=== PATIENT | male | born 1960 | race Caucasian/White ===

== ENCOUNTER 2018-08-18 18:19 | Emergency (ER) | payer MEDICARE ==
[~2018-08-18] VITALS: Ht 175.3 cm; Wt 136.1 kg
[2018-08-18 18:53] VITALS: BP 150/87
--- NOTE | 2018-08-18 19:04 | PHYS DOC ---
Adult General Chief Complaint Chief Complaint: LACERATION/AVULSION HPI HPI Patient is a 58 year old male who presents to the emergency department with complaints of a laceration to his right index finger. Patient states he was washing a knife that he had used to cut ham when he accidentally cut his finger. He denies any numbness, tingling, or decreased range of motion of the finger. He states he is unsure when his last tetanus immunization was. Review of Systems Review of Systems Constitutional: Denies fever or chills [] Musculoskeletal: Denies joint pain [] Integument: Denies rash, see HPI Neurologic: Denies headache, focal weakness or sensory changes [] All other systems were reviewed and found to be within normal limits, except as documented in this note. Current Medications Current Medications Current Medications Medications (Trade) Dose Ordered Sig/Emeterio Start Time Stop Time Status Last Admin Dose Admin Diphtheria/ Tetanus/Acell Pertussis (Boostrix) 0.5 ml ONCE ONCE 08/18/18 19:30 08/18/18 19:31 DC 08/18/18 19:40 0.5 ML Lidocaine HCl (Xylocaine-Mpf 1% 2ml Vial) 6 ml 1X ONCE 08/18/18 19:30 08/18/18 19:31 DC 08/18/18 19:37 6 ML Neomycin/ Polymyxin/ Bacitracin (Triple Antibiotic Ointment) 1 pkt 1X ONCE 08/18/18 19:30 08/18/18 19:31 DC 08/18/18 19:38 1 PKT Allergies Allergies Allergies Coded Allergies Type Severity Reaction Last Updated Verified No Known Drug Allergies 08/18/18 No Physical Exam Physical Exam Constitutional: Well developed, well nourished, no acute distress, non-toxic appearance, obese. [] HENT: Normocephalic, atraumatic, bilateral external ears normal, nose normal. [] Eyes: PERRLA, conjunctiva normal, no discharge. [] Skin: Warm, dry, no erythema, no rash, 2 cm laceration to palmar surface of right index finger between DIP and PIP, approximately 2 cm long, bleeding controlled by pressure held by patient. [] Extremities: No cyanosis, no clubbing, ROM intact, no edema. [] Neurologic: Alert and oriented X 3, normal motor function, normal sensory function, no focal deficits noted. [] Psychologic: Affect normal, judgement normal, mood normal. [] Current Patient Data Vital Signs Vital Signs Date Time Temp Pulse Resp B/P (MAP) Pulse Ox O2 Delivery O2 Flow Rate FiO2 08/18/18 18:53 98.4 75 20 150/87 (108) 97 Room Air 98.4 EKG EKG [] Radiology/Procedures Radiology/Procedures Laceration Repair by me: Anesthesia: 1% lidocaine locally Location: palmar aspect of right index finger between DIP and PIP Tendon/Joint/Nerves: No injury Foreign body: None detected after copious irrigation and exploration Technique: 5 Simple Interrupted Sutures with 4.0 Ethilon Complexity: No subcutaneous sutures/mucosal repair/edge excision Post Closure Length: 2 cm Patient's bleeding was easily controlled in the department and there is no indication of anemia. No evidence of compartment syndrome, neurologic injury, vascular injury, open joint, tendon laceration, or foreign body. Patient is appropriate for outpatient follow up. Course & Med Decision Making Course & Med Decision Making Pertinent Labs and Imaging studies reviewed. (See chart for details) Dx: finger laceration, tDap immunization Keep the dressing was applied today in place for the next 24 hours, then change dressing and apply antibiotic ointment to the affected area twice daily. Wear the aluminum finger splint until sutures are removed in 10 days. Follow-up with your primary care doctor or return to the emergency room for suture removal. He may take Tylenol or ibuprofen as needed for pain. [] Dragon Disclaimer Dragon Disclaimer This electronic medical record was generated, in whole or in part, using a voice recognition dictation system. Departure Departure Impression: Primary Impression: Laceration of index finger without foreign body without damage to nail Additional Impression: Need for Tdap vaccination Disposition: 01 HOME, SELF-CARE Condition: STABLE Referrals: ROMELIA GARCIA (PCP) Patient Instructions: Laceration Care, Adult, [id number], VIS, Tetanus, Diphtheria, and Pertussis (Tdap) - CDC Additional Instructions: Keep the dressing was applied today in place for the next 24 hours, then change dressing and apply antibiotic ointment to the affected area twice daily. Wear the aluminum finger splint until sutures are removed in 10 days. Follow-up with your primary care doctor or return to the emergency room for suture removal. He may take Tylenol or ibuprofen as needed for pain. [] Problem Qualifiers Primary Impression: Laceration of index finger without foreign body without damage to nail Encounter type: initial encounter Laterality: right Qualified Codes: S61.210A - Laceration without foreign body of right index finger without damage to nail, initial encounter TIM GARCIA APRN Aug 18, 2018 19:04
[2018-08-18] MEDS ORDERED: DIPHTH,PERTUSS(ACELL),TET TOX 0.5 ML DISP.SYRIN. VAX IM ONE (19:30)
[2018-08-18] MEDS ORDERED: NEOMY/BACITR/POLYMYXIN OINT PACKET. TP ONE (19:30)
[2018-08-18] MEDS ORDERED: LIDOCAINE 1% PF 2 ML VIAL. INJ ONE (19:30)
== END 2018-08-18 20:20 | disposition home or self-care (01) ==
LOC: ER 18:19
DX: S61.210A Laceration without foreign body of right index finger without damage to nail, initial encounter (principal); W26.0XXA Contact with knife, initial encounter; Y93.89 Activity, other specified; Y92.89 Other specified places as the place of occurrence of the external cause; Y99.8 Other external cause status
CPT/HCPCS: 12001; 90471; 90715; 99283-25